=== PATIENT | female | born 1985 | race Native Hawaiian/Other Pacific Islander ===

== ENCOUNTER 2017-03-28 21:00 | Inpatient (IN) | payer MEDICAID, OTHER, SELFPAY ==
[2017-03-28 21:58] VITALS: BMI 27.6
--- NOTE | 2017-03-28 22:05 | OBHP ---
Datetime: 03/28/2017 22:00 IP Adm Impression: Term, intrauterine ; Active labor IP Admit Plan: Admit to unit; Initiate labor protocol Admit Comment, IP Provider: chief complaint-contractions HPI 31 y/o at 39.5 wga with c/o contractions.denies vaginal bleeidng or lsos of fluid patient denies nausea, vomiting, headache, chest pain, shortness of breath, numbness or tingling i n hands and feet course transfeer olf care from [facility]; [facility] in [place] PMH denies PSH denies OBGYN HX Social hx denies tobacco,alcohol or ilciit drug use Meds vitamins Allergies penicillin Exam see exam section A/P 31 y/o at 39.5 wga in labor -admit -see orders Pelvic Type - PN: Adequate Extremities - PN: Normal Abdomen - PN: Normal Back - PN: Normal Lungs - PN: Normal Heart - PN: Normal Neurologic - PN: Normal General - PN: Normal Weight - Estimated: 3200 Presentation-Admit: Vertex Contraction Comments Provider: every 3-6min Gestation - Est Wks by US: 39.5 IP Hx Assessment: The History has been Reviewed and is Current Vital Signs Provider: Reviewed; Within Normal Limits IP Chief Complaint: Uterine contractions FHR Category Provider Fetus A: Category I Dilatation, Provider: 4 Effacement, Provider: 80 Station, Provider: -2 Genitourinary Exam: Normal DTRs - PN: Normal
[2017-03-28 22:33] LABS: BASO % 0.3 % (0.0-2.0); EOS % 0.5 % (0.0-4.0); HEMATOCRIT 35.8 % (34.0-47.0); LYMPH # 1.2 K/uL (1.0-4.3); LYMPH % 15.7 % (20.0-40.0); MEAN CELL VOLUME 94.6 fL (81.0-99.0); MEAN CORPUSCULAR HEMOGLOBIN 32.4 pg (27.0-31.0); MEAN CORPUSCULAR HGB CONC 34.3 g/dL (33.0-37.0); MEAN PLATELET VOLUME 8.9 fL (7.2-11.7); MONO # 0.5 K/uL (0.0-0.8); MONO % 6.1 % (0.0-10.0); RED CELL DISTRIBUTION WIDTH 17.1 % (11.5-14.5); WHITE BLOOD COUNT 7.8 K/uL (4.8-10.8)
[2017-03-28 22:41] LABS: CHLORIDE 102 mmol/L (98-107); SODIUM 133 mmol/L (132-148)
[2017-03-28 22:42] LABS: POTASSIUM 3.5 mmol/L (3.6-5.2); RBC URINE < 1 /hpf (0-3); TRANSITIONAL EPITHIAL < 1 /hpf (0-3); URINE BACTERIA RARE (<OCC); URINE BILIRUBIN NEGATIVE (NEGATIVE); URINE BLOOD NEGATIVE (NEGATIVE); URINE COLOR Yellow (YELLOW); URINE GLUCOSE (UA) NORMAL (Normal); URINE KETONE NEGATIVE (NEGATIVE); URINE LEUKOCYTE ESTERASE NEG Leu/uL (Negative); URINE PROTEIN NEGATIVE (NEGATIVE); URINE UROBILINOGEN NORMAL mg/dL (0.2-1.0); WBC URINE < 1 /hpf (0-5)
[2017-03-28 22:44] LABS: GFR AFRICAN-AMERICAN > 60
[2017-03-28 22:45] LABS: ALB/GLOB RATIO 1.2 (1.0-2.1); ALKALINE PHOSPHATASE 172 U/L (38-126); ALT/SGPT 27 U/L (9-52); AST/SGOT 16 U/L (14-36); BILIRUBIN,TOTAL 0.3 mg/dL (0.2-1.3); BLOOD UREA NITROGEN 8 mg/dL (7-17); CALCIUM 9.1 mg/dl (8.6-10.4); CARBON DIOXIDE 21 mmol/L (22-30); GLUCOSE,RANDOM 102 mg/dL (65-105); TOTAL PROTEIN 6.6 g/dL (6.3-8.3)
[2017-03-28] MEDS ORDERED: Bupivacaine HCl 0.25% PF (10 ml) Inj ONE (22:58)
[2017-03-28] MEDS ORDERED: Bupivacaine 0.125%/FentaNYL 200 ML EPI ONE (22:59)
[2017-03-29] MEDS ORDERED: Bupivacaine HCl 0.25% PF (10 ml) Inj ONE ×2 (04:12→06:51)
--- NOTE | 2017-03-29 07:59 | OBPN ---
Datetime: 03/29/2017 07:55 IP Progress Impression: Normal progression of labor IP Procedures: Sterile Vag Exam FHR - Baseline A Provider: 130 IP Progress Note Comment: pt was examined at bed side ve fd/100/0 start pitocin anticipate Vital Signs Provider: Reviewed; Within Normal Limits NICHD Accel Fetus A IP Provider: 15X15 FHR Category Provider Fetus A: Category I NICHD Variability Prov Fetus A: Moderate 6-25bpm Dilatation, Provider: 10 Effacement, Provider: 100 Station, Provider: 0 Datetime: 03/28/2017 22:00 Contraction Comments Provider: every 3-6min Gestation - Est Wks by US: 39.5 Weight - Estimated: 3200 Presentation-Admit: Vertex
[2017-03-29] MEDS ORDERED: Oxytocin 30 UNIT 30 UNITS/500 ML BAG IV ONE (08:00)
[2017-03-29] MEDS ORDERED: Oxytocin 30 UNIT 30 UNITS/500 ML BAG IV SCH (08:15)
[2017-03-29] MEDS ORDERED: Oxycodone/Acetaminophen 5/325 mg Tab PO PRN ×3 (10:49→13:00)
[2017-03-29] MEDS ORDERED: Lidocaine 2% Inj (20ml) ONE (11:45)
[2017-03-29] MEDS ORDERED: Oxytocin 10 Units/ml Inj ONE (11:49)
--- NOTE | 2017-03-29 12:24 | OBDS ---
DELIVERY PERSONNEL Delivery Doctor: Garrick Mora MD Stripe Marker: Kyara Lao RN/ Alyse MARIN Anesthesiologist: Grover MATERNAL INFORMATION Delivery Anesthesia: Epidural Medications in Delivery: Pitocin 30 units IV; Cytotec 1000 mcg rectally Estimated Blood Loss (ml): 400 Placenta Cultured: No Maternal Complications: None RN Comments: Liveborn baby Boy. 9-9. Vacuum assist. Provider Comments: baBY DELIVERD IN [place].ENDOMETRAIL CLEAN. NO COMPLICATION. VACCUM APPLIED PEADS PRESENT COM NONE. LABOR SUMMARY EDC: 03/30/2017 00:00 No. Babies in Womb: 1 Attempted: No Labor Anesthesia: Epidural LABOR INFORMATION Reason for Induction: Not Applicable Onset of Labor: 03/28/2017 08:00 Complete Dilatation: 03/29/2017 07:44 Oxytocin: Augmentation Group B Beta Strep: Negative (Annotations: 03/09/2017) Antibiotics # of Doses: 0 Antibiotics Time of Last Dose: 0 Steroids Given: None Reason Steroids Not Administered: Not Applicable MEMBRANES Membranes Rupture Method: Artificial Rupture of Membranes: 03/29/2017 07:44 Length of Rupture (hrs): 3.88 Amniotic Fluid Color: Heavy Meconium Amniotic Fluid Amount: Moderate Amniotic Fluid Odor: None STAGES OF LABOR Stage 1 hrs: 23 Stage 1 min: 44 Stage 2 hrs: 3 Stage 2 min: 53 Stage 3 hrs: 0 Stage 3 min: 3 Total Time in Labor hrs: 27 Total Time in Labor min: 40 VAGINAL DELIVERY Episiotomy: Right Mediolateral Laceration Extension: Second Degree Laceration Type: Perineal Laceration Repair: Yes Laceration Repair Note: repaired with 2 vircy and 3 chromic Initial Vag Sponge Count: 10 Final Vag Sponge Count: 10 Initial Vag Sharps Count: 3 Final Vag Sharps Count: 3 Sponge Count Correct: Yes; Vaginal Sweep Performed Sharps Count Correct: Yes BABY A INFORMATION Delivery Date/Time: 03/29/2017 11:37 Method of Delivery: Vaginal Born in Route : No : N/A Forceps: N/A Vacuum Extraction: Successful Shoulder Dystocia : No ASSISTED DELIVERY BABY A Indication for Assisted Delivery: maternal exhaustion Catheter Prior to Procedure: Yes Station Vacuum/Forcep Apply: +3 Position Vacuum/Forcep Apply: Left Occipital Anterior Vacuum Number of Pulls: 2 Vacuum Number of PopOffs: 0 Reduce Pressure btwn Ctx: Yes Vacuum Finishing Tunnel Operator: Amino Appswi pump Total Time Vacuum Applied: 30 sec Vacuum/Forceps Comment: vACCUM APPLIED FOR MATERNAL EXHAUSTION. RML MAVIS BEFORE. 2 PULLS BABY DELIVER D. NO CORD ARROUNFD NECK.CORD GAS SEMT PLACENTE SEND TO PATHOLOGY. END C;LEAN NO COM PEADS PRESENT AT THE TIME SHOULDER DYSTOCIA BABY A Delivery Date/Time: 03/29/2017 11:37 PRESENTATION/POSITION BABY A Presentation: Cephalic Cephalic Presentation: Vertex Vertex Position: Left Occipital Anterior Breech Presentation: N/A PLACENTA INFORMATION BABY A Placenta Delivery Time : 03/29/2017 11:40 Placenta Method of Delivery: Spontaneous Placenta Status: Delivered SCORES BABY A Heart Rate 1 min: >100 bpm Resp Effort 1 min: Good Cry Reflex Irritability 1 min: Cough or Sneeze or Pulls Away Muscle Tone 1 min: Active Motion Color 1 min: Body [place], Extremities Blue Resuscitation Effort 1 min: N/A SCORE 1 MIN: 9 Heart Rate 5 min: >100 bpm Resp Effort 5 min: Good Cry Reflex Irritability 5 min: Cough or Sneeze or Pulls Away Muscle Tone 5 min: Active Motion Color 5 min: Body [place], Extremities Blue Resuscitation Effort 5 min: N/A SCORE 5 MIN: 9 INFANT INFORMATION BABY A Gestational Age at Delivery: 39.6 Gestational Status: Term Outcome : Liveborn Condition : Stable Infant Sex: Male IDENTIFICATION/MEDS BABY A ID Band Number: [id number] ID Band Location: Left Leg; Left Arm Sensor Applied: Yes Sensor Number: [id number] Sensor Location : Cord Clamp Vitamin K Given : Not Given Erythromycin Given: Not Given WEIGHT/LENGTH BABY A Infant Birthweight (gms): 3345 Weight (lb): 7 Infant Weight (oz): 6 Length Inches: 19.50 Infant Length cms: 49.5 CORD INFORMATION BABY A No. Cord Vessels: 3 Nuchal Cord : N/A Cord pH Baby Arterial: 7.28 Cord Blood Taken: Yes Infant Suction: Mouth; Nose ASSESSMENT BABY A Infant Complications: None Physical Findings at Delivery: Within Normal Limits Infant Respirations: Appears Normal Curriculum Development Specialist/ALS Called : Yes Care By: Transferred To: [facility]
[2017-03-29] MEDS ORDERED: Simethicone 80 mg Chewtab PO PRN (12:45)
[2017-03-29] MEDS ORDERED: Benzocaine/Menthol 20%-0.5% Topical Spray (60 ml) EXT PRN (16:46)
--- NOTE | 2017-03-30 07:17 | OBPPN ---
Datetime: 03/30/2017 07:02 PP Pain Prov: Within normal limits PP Nausea Prov: Denies PP Flatus Prov: Yes PP BM Prov: No PP Breasts Prov: Normal PP Heart Prov: Normal PP Lungs Prov: Normal PP Abdomen/Uterus Prov: Normal PP Lochia Prov: Normal PP Vulva/Perineum Prov: Normal PP CVA Tenderness Prov: Normal PP Extremities Prov: Normal PP C/S Incision Prov: Not Applicable PP Progress Prov: Normal PP Impression Prov: Normal progression PP Plan Prov: Continue present management PP Progress Note Prov: Patient was seen and examined at bedside in the AM. Medical student Zac Gonzales, OMS-3 spoke with the information technology officer #[id number]. Patient stated her pain was currently a 3/10 mostly in the anal area. Patient stated she is urinating without difficulty and her vaginal bleeding is min imal. Patient states she is passing gas but has not had a bowel movement. Patient denies nausea or vomiting. She states she did start walking yesterday. She states she is breast feeding. Objective: B/P: 96/63 H/H on admission (03/28) 12.3/35.8 Awake, Alert and oriented x3 Abdomen: non-tender, soft, fundus is firm about 2 fingers under the umbilicus Lower Extremities: non-tender, non-swollen A/P: at 39weeks 5 days delivered vaginally 03/29 1.) Continue pain managment 2.) Monitor H/H 3.) Encourage ambulation 4.) Encourage breast feeding Myesha Bah DO PGY-1 dr francheska skelton with above Vital Signs Provider PP: Reviewed; Within Normal Limits
[2017-03-30 08:53] LABS: MEAN CELL VOLUME 95.5 fL (81.0-99.0); MEAN CORPUSCULAR HEMOGLOBIN 32.5 pg (27.0-31.0); MEAN PLATELET VOLUME 8.9 fL (7.2-11.7); RED CELL DISTRIBUTION WIDTH 16.1 % (11.5-14.5); WHITE BLOOD COUNT 11.7 K/uL (4.8-10.8)
[2017-03-30 16:31] VITALS: O2SAT 98
[2017-03-31] MEDS ORDERED: Influenza Vaccine 60 mcg/0.5 mL SYR (4YR UP) IM ONE (10:52)
--- NOTE | 2017-03-31 11:54 | OBDCSUM ---
Datetime: 03/31/2017 08:27 Discharged to, Provider: Home Follow up at, Provider: eliz Pace Instr Activity: Normal activity Disch Instr Diet: Regular Discharge Diagnosis, Provider: Term Delivered Discharge Time: 03/31/2017 11:30 Follow up in weeks, Provider: 6 weeks Disch Referrals: None Contraception discussed, Prov: No Disch Activity Restrictions: No lifting; Minimize stair-climbing; No sexual activity; Nothing in vag clare - [place], tampons, douche Discharge Diagnosis Prov Other: Anemia
--- NOTE | 2017-03-31 12:52 | OBPPN ---
Datetime: 03/31/2017 07:13 PP Pain Prov: Within normal limits PP Nausea Prov: Denies PP Flatus Prov: Yes PP BM Prov: Yes PP Breasts Prov: Normal PP Heart Prov: Normal PP Lungs Prov: Normal PP Abdomen/Uterus Prov: Normal PP Lochia Prov: Normal PP Vulva/Perineum Prov: Normal PP CVA Tenderness Prov: Normal PP Extremities Prov: Normal PP C/S Incision Prov: Not Applicable PP Progress Prov: Normal PP Impression Prov: Normal progression PP Plan Prov: Discharge PP Progress Note Prov: Patient was seen and examined at bedside in the AM. Pt is tolerating regular diet well, + urinating and has had a BM, pain well controlled, minimal vaginal bleeding. Denies fever , chills, nausea, vomiting. She is exclusively and doing well. Objective: B/P: 103/64 H/H on admission (03/28) 12.3/35.8 H/H post , 03/30: 10.2/30 Awake, Alert and oriented x3 Abdomen: non-tender, soft, fundus is firm about 2 fingers below the umbilicus Lower Extremities: non-tender, non-swollen A/P: at 39weeks 5 days delivered vaginally 03/29 1.) Continue pain managment 2.) Monitor H/H 3.) Encourage ambulation 4.) Encourage breast feeding 5.) Continue iron supplementation 6.) Will discharge today Attending Note: Patient seen, evaluated and examined with resident on rounds earlier this morning. I agree with th e documentation of [place], assessment and plan as above. Vital Signs Provider PP: Reviewed; Within Normal Limits
[2017-03-31 19:48] VITALS: BP 91/57; PULSE 69; RESP 18; TEMP 97.5
== END 2017-03-31 13:30 | disposition home or self-care (01) | DRG 775 ==
LOC: C.EROB 21:00 → C.4D 21:53 → C.4M 03-29 14:15
PROVIDERS: ADMIT Student in an Organized Health Care Education/Training Program; ATTEND Student in an Organized Health Care Education/Training Program
PROC: 0KQM0ZZ Repair Perineum Muscle, Open Approach (ICD-10-PCS; principal; 2017-03-29)
PROC: 0W8NXZZ Division of Female Perineum, External Approach (ICD-10-PCS; 2017-03-29)
DX: O70.1 Second degree perineal laceration during delivery (principal); O99.019 Anemia complicating pregnancy, unspecified trimester; Z3A.39 39 weeks gestation of pregnancy; Z37.0 Single live birth